=== PATIENT | male | born 1975 | race African-American/Black ===

== ENCOUNTER 2019-09-28 14:43 | Emergency (ER) | payer OTHER ==
[~2019-09-28] VITALS: Ht 180.3 cm; Wt 83.0 kg
[2019-09-28 14:53] VITALS: BP 110/55; Ht 180.3 cm; Wt 83.0 kg
[2019-09-28 16:15] LABS: BASOPHIL % 0.8 % (0-2); PLATELET COUNT 243 x10^3mcL (130-400)
[2019-09-28 16:33] LABS: CALCIUM 9.6 mg/dL (8.5-10.1); CARBON DIOXIDE 27.2 mmol/L (21-32); CHLORIDE SERUM 106 mmol/L (98-107); CREATININE SERUM 0.9 mg/dL (0.7-1.3); GFR1 > 60 mL/min; GLUCOSE SERUM 93 mg/dL (74-106); POTASSIUM SERUM 3.8 mmol/L (3.5-5.1); SODIUM SERUM 142 mmol/L (136-145)
== END 2019-09-28 17:40 | disposition home or self-care (01) ==
LOC: ED 14:43
PROVIDERS: Emergency Medicine
DX: K29.70 Gastritis, unspecified, without bleeding (principal); R07.89 Other chest pain
CPT/HCPCS: 36415; Q0092